=== PATIENT | female | born 1950 | race African-American/Black ===

== ENCOUNTER 2022-06-28 13:14 | Inpatient (IN) ==
[2022-06-28 16:33] LABS: Albumin 2.9 G/DL (3.4-5.0); Bilirubin,Total 0.7 MG/DL (0.20-1.00); Calcium 8.8 MG/DL (8.5-10.1); Osmolality,Calculated 292.4 MOS/KG (273-304); Potassium 3.9 MMOL/L (3.5-5.1); Total Protein 6.9 G/DL (6.4-8.2)
[2022-06-28 16:42] LABS: Basophils % 0.2 % (0.0-0.8); Eosinophils % 0.2 % (0.00-10.9); Hematocrit 36.1 VOL% (35.7-47.0); Hemoglobin 12.4 GM/DL (12.0-16.0); Immature Granulocytes % 0.8 %; Immature Granulocytes Absolute 0.04 #; Lymphocytes # 0.7 10*3/uL (1.4-4.0); Lymphocytes % 12.8 % (21.3-54.2); Mean Corpuscular HGB Conc 34.3 GM/DL (32-36); Mean Corpuscular Volume 76.2 FL (87-102); Mean Platelet Volume 10.3 FL (9.6-12.0); Monocytes # 0.5 10*3/uL (0.11-0.8); Monocytes % 9.7 % (1.7-12.7); Neutrophils % 76.3 % (38.7-73.9); Platelet Count 117 T/CUMM (130-400); Red Blood Count 4.74 MC/CUMM (3.8-5.5); Red Cell Distribution Width 17.8 % (9.3-17.3); White Blood Count 5.2 T/CUMM (4-12)
[2022-06-28] MEDS ORDERED: DEXTROSE 50% 25 GM/50 ML VIAL IV PRN (17:48)
[2022-06-28] MEDS ORDERED: ONDANSETRON 4 MG/2 ML VIAL IV PRN (17:48)
[2022-06-28] MEDS ORDERED: ACETAMINOPHEN 325 MG TABLET PO PRN (17:48)
[2022-06-28] MEDS ORDERED: GLUCAGON 1 MG VIAL IM PRN ×2 (17:48)
[2022-06-28] MEDS ORDERED: DOCUSATE SODIUM 100 MG CAPSULE PO PRN (17:54)
[2022-06-28] MEDS ORDERED: DEXTROSE 10% 250 ML BAG IV PRN (17:54)
[2022-06-28] MEDS ORDERED: INSULIN REGULAR 100 UNIT/ML ONE (18:19)
[2022-06-28] MEDS ORDERED: HEPARIN 5,000 UNIT/1 ML VIAL SUBCUT SCH (21:00)
[2022-06-28] MEDS ORDERED: ENOXAPARIN 60 MG/0.6 ML SYRINGE SUBCUT SCH (21:00)
[2022-06-28] MEDS ORDERED: POLYETHYLENE GLYCOL POWDER 255 GM BOTTLE PO ONE (21:00)
[2022-06-28] MEDS: INSULIN REGULAR 100 UNIT/ML SUBCUT SCH (21:30)
[2022-06-28] MEDS: carvediloL 25 MG TABLET PO SCH (21:30)
[2022-06-28] MEDS: ATORVASTATIN 10 MG TABLET PO SCH (21:30)
[2022-06-29 05:39] LABS: Basophils % 0.2 % (0.0-0.8); Eosinophils % 0.8 % (0.00-10.9); Hematocrit 35.2 VOL% (35.7-47.0); Hemoglobin 12.2 GM/DL (12.0-16.0); Immature Granulocytes % 0.6 %; Immature Granulocytes Absolute 0.03 #; Lymphocytes # 0.9 10*3/uL (1.4-4.0); Lymphocytes % 18.8 % (21.3-54.2); Mean Corpuscular HGB Conc 34.7 GM/DL (32-36); Mean Corpuscular Volume 75.1 FL (87-102); Mean Platelet Volume 9.9 FL (9.6-12.0); Monocytes # 0.7 10*3/uL (0.11-0.8); Monocytes % 14.3 % (1.7-12.7); Neutrophils % 65.3 % (38.7-73.9); Platelet Count 109 T/CUMM (130-400); Red Blood Count 4.69 MC/CUMM (3.8-5.5); Red Cell Distribution Width 17.9 % (9.3-17.3); White Blood Count 4.7 T/CUMM (4-12)
[2022-06-29 06:01] LABS: Hypochromia 1+
[2022-06-29 06:02] LABS: Acanthocytes Few; Microcytosis 1+; Ovalocytes Slight; Target Cells Few
[2022-06-29 06:03] LABS: Platelet Estimate Decreased
[2022-06-29 06:09] LABS: Alanine Aminotransferase < 9 U/L (13-56); Albumin 2.5 G/DL (3.4-5.0); Alkaline Phosphatase 61 U/L (45-117); Aspartate Amino Transferase 8 U/L (0-37); Blood Urea Nitrogen 49 MG/DL (7-18); Calcium 8.3 MG/DL (8.5-10.1); Carbon Dioxide 26 MMOL/L (21-32); Chloride 102 MMOL/L (98-107); Cholesterol 80 MG/DL (50-200); Glucose 139 MG/DL (74-106); HDL Cholesterol 29 MG/DL (40-60); Osmolality,Calculated 287.8 MOS/KG (273-304); Potassium 3.6 MMOL/L (3.5-5.1); Risk Ratio 2.76; Sodium 137 MMOL/L (136-145); Total Protein 6.3 G/DL (6.4-8.2); Triglycerides 59 MG/DL (2-150); VLDL Cholesterol 11.8 MG/DL
[2022-06-29] MEDS: ASPIRIN EC 81 MG TABLET PO SCH (08:12)
[2022-06-29] MEDS: carvediloL 25 MG TABLET PO SCH ×2 (08:12→20:53)
[2022-06-29] MEDS: ISOSORBIDE MONONITRATE 60 MG TABLET PO SCH (08:13)
[2022-06-29] MEDS: amLODIPine 10 MG TABLET PO SCH (08:13)
[2022-06-29] MEDS: INSULIN REGULAR 100 UNIT/ML SUBCUT SCH ×3 (08:13→17:57)
[2022-06-29] MEDS: PANTOPRAZOLE 40 MG TABLET PO SCH (08:13)
[2022-06-29] MEDS: FUROSEMIDE 40 MG/4 ML VIAL IV SCH ×2 (08:16→17:57)
[2022-06-29] MEDS: APIXABAN 2.5 MG TABLET PO SCH ×2 (08:50→20:53)
[2022-06-29] MEDS ORDERED: CLOPIDOGREL 75 MG TABLET PO SCH (09:00)
[2022-06-29 11:11] LABS: Hepatitis B Core IgM Quant 0.23 Index; Hepatitis B Surface Ag Quant < 0.10 Index; Hepatitis B Surface Ag Result Non-Reactive (NonReactive); Hepatitis C Virus Ab Quant 0.04 Index; Hepatitis C Virus Ab Result Non-Reactive (NonReactive)
[2022-06-29 13:15] LABS: Bacteria,Urine Many /HPF (Few); RBC,Urine 93 /HPF (0-4); Squamous Epithelial Cell,Urine Many /HPF (0-10)
[2022-06-29 13:16] LABS: Urine Appearance Cloudy (Clear); Urine Color Dark yellow (Yellow)
[2022-06-29 13:17] LABS: Bilirubin,Urine Small mg/dL (Negative); Blood, Urine Large mg/dL (Negative); Glucose,Urine (UA) Negative (Negative); Ketones,Urine 15 mg/dL (Negative); Nitrite,Urine Negative (Negative); Protein,Urine >=300 mg/dL (Negative); Urine Urobilinogen 0.2 eU/dL (<2.0); Urine pH 5.5 (4.5-8.0)
[2022-06-29] MEDS: ATORVASTATIN 10 MG TABLET PO SCH (20:53)
[2022-06-30] MEDS: INSULIN REGULAR 100 UNIT/ML SUBCUT SCH ×5 (00:45→21:56)
[2022-06-30] MEDS ORDERED: TUBERCULIN SKIN TEST 0.1 ML SYRINGE INTRADERM ONE (08:00)
[2022-06-30] MEDS: FUROSEMIDE 40 MG/4 ML VIAL IV SCH ×2 (08:35→15:50)
[2022-06-30] MEDS: PANTOPRAZOLE 40 MG TABLET PO SCH (08:36)
[2022-06-30] MEDS: carvediloL 25 MG TABLET PO SCH ×2 (08:36→21:57)
[2022-06-30] MEDS: ISOSORBIDE MONONITRATE 60 MG TABLET PO SCH (08:36)
[2022-06-30] MEDS: ASPIRIN EC 81 MG TABLET PO SCH (08:36)
[2022-06-30] MEDS: APIXABAN 2.5 MG TABLET PO SCH ×2 (08:36→21:54)
[2022-06-30] MEDS: amLODIPine 10 MG TABLET PO SCH ×2 (08:36→08:46)
[2022-06-30] MEDS: ATORVASTATIN 10 MG TABLET PO SCH (21:54)
[2022-07-01] MEDS ORDERED: POLYETHYLENE GLYCOL POWDER 17 GM PACK PO PRN (02:51)
[2022-07-01] MEDS ORDERED: ALUM/MAG/SIMETH/LIDO VISC 1:1 30 ML BOTTLE PO ONE (02:51)
[2022-07-01] MEDS: INSULIN REGULAR 100 UNIT/ML SUBCUT SCH ×4 (07:50→21:33)
[2022-07-01] MEDS: FUROSEMIDE 40 MG/4 ML VIAL IV SCH (09:20)
[2022-07-01] MEDS: amLODIPine 10 MG TABLET PO SCH (09:20)
[2022-07-01] MEDS: PANTOPRAZOLE 40 MG TABLET PO SCH (09:20)
[2022-07-01] MEDS: ISOSORBIDE MONONITRATE 60 MG TABLET PO SCH (09:20)
[2022-07-01] MEDS: APIXABAN 2.5 MG TABLET PO SCH ×2 (09:20→21:32)
[2022-07-01] MEDS: carvediloL 25 MG TABLET PO SCH ×2 (09:20→21:32)
[2022-07-01] MEDS: ASPIRIN EC 81 MG TABLET PO SCH (09:20)
[2022-07-01] MEDS: ATORVASTATIN 10 MG TABLET PO SCH (21:32)
[2022-07-01] MEDS ORDERED: ALUM/MAG/SIMETH/LIDO VISC 1:1 30 ML BOTTLE PO PRN (21:51)
[2022-07-02] MEDS: ISOSORBIDE MONONITRATE 60 MG TABLET PO SCH (13:48)
[2022-07-02] MEDS: PANTOPRAZOLE 40 MG TABLET PO SCH (13:48)
[2022-07-02] MEDS: amLODIPine 5 MG TABLET PO SCH (13:48)
[2022-07-02] MEDS: carvediloL 25 MG TABLET PO SCH ×2 (13:48→21:31)
[2022-07-02] MEDS: ASPIRIN EC 81 MG TABLET PO SCH (13:48)
[2022-07-02] MEDS: APIXABAN 2.5 MG TABLET PO SCH ×2 (13:48→21:31)
[2022-07-02] MEDS: INSULIN REGULAR 100 UNIT/ML SUBCUT SCH ×4 (13:49→20:36)
[2022-07-02] MEDS: ATORVASTATIN 10 MG TABLET PO SCH (21:31)
[2022-07-03] MEDS: INSULIN REGULAR 100 UNIT/ML SUBCUT SCH (08:13)
[2022-07-03] MEDS: ASPIRIN EC 81 MG TABLET PO SCH (08:40)
[2022-07-03] MEDS: APIXABAN 2.5 MG TABLET PO SCH (08:40)
[2022-07-03] MEDS: carvediloL 25 MG TABLET PO SCH (08:40)
[2022-07-03] MEDS: ISOSORBIDE MONONITRATE 60 MG TABLET PO SCH (08:40)
[2022-07-03] MEDS: amLODIPine 5 MG TABLET PO SCH (08:40)
[2022-07-03] MEDS: PANTOPRAZOLE 40 MG TABLET PO SCH (08:40)
[2022-07-03 09:06] VITALS: BP 100/61
[2022-07-05] MEDS ORDERED: cloNIDine 0.3 MG/24 HR PATCH TRANSDERM SCH (09:00)
== END 2022-07-03 11:30 | DRG 640 ==
LOC: N.ED 13:14 → N.EDINP 17:47 → N.TELES 22:30
PROVIDERS: ADMIT Internal Medicine Geriatric Medicine; ATTEND Internal Medicine Geriatric Medicine

== ENCOUNTER 2022-07-16 08:08 | Inpatient (IN) ==
[2022-07-16] MEDS ORDERED: SODIUM CHLORIDE 0.9% 500 ML IV STA (08:11)
[2022-07-16 09:42] LABS: Eosinophils % 0.3 % (0.00-10.9); Hematocrit 20.9 VOL% (35.7-47.0); Hemoglobin 6.6 GM/DL (12.0-16.0); Immature Granulocytes % 1.3 %; Immature Granulocytes Absolute 0.05 #; Lymphocytes # 0.5 10*3/uL (1.4-4.0); Lymphocytes % 12.5 % (21.3-54.2); Mean Corpuscular HGB Conc 31.6 GM/DL (32-36); Mean Corpuscular Volume 81.6 FL (87-102); Mean Platelet Volume 10.6 FL (9.6-12.0); Monocytes # 0.4 10*3/uL (0.11-0.8); Monocytes % 10.5 % (1.7-12.7); Neutrophils % 75.4 % (38.7-73.9); Red Blood Count 2.56 MC/CUMM (3.8-5.5); Red Cell Distribution Width 18.1 % (9.3-17.3); White Blood Count 3.9 T/CUMM (4-12)
[2022-07-16 09:44] LABS: Platelet Count 56 T/CUMM (130-400)
[2022-07-16 10:03] LABS: Platelet Estimate Decreased
[2022-07-16 10:14] LABS: Alanine Aminotransferase < 6 U/L (13-56); Albumin 0.6 G/DL (3.4-5.0); Alkaline Phosphatase 23 U/L (45-117); Aspartate Amino Transferase 5 U/L (0-37); Bilirubin,Total < 0.39 MG/DL (0.20-1.00); Blood Urea Nitrogen 27 MG/DL (7-18); Carbon Dioxide 11 MMOL/L (21-32); Chloride 135 MMOL/L (98-107); Osmolality,Calculated 308.3 MOS/KG (273-304); Sodium 155 MMOL/L (136-145)
[2022-07-16 10:18] LABS: Calcium < 5.0 MG/DL (8.5-10.1); Glucose 36 MG/DL (74-106); Potassium 1.8 MMOL/L (3.5-5.1)
[2022-07-16] MEDS ORDERED: DEXTROSE 50% 25 GM/50 ML VIAL IV STA (10:19)
[2022-07-16] MEDS ORDERED: DEXTROSE 50% 25 GM/50 ML SYRINGE IV ONE (10:21)
[2022-07-16] MEDS ORDERED: ALBUTEROL 2.5 MG/3 ML NEB RESP TX PRN (10:38)
[2022-07-16] MEDS ORDERED: POTASSIUM CHLORIDE RIDER 20 MEQ/100 ML PREMIX IV STA (10:39)
[2022-07-16] MEDS ORDERED: ONDANSETRON 4 MG/2 ML VIAL IV PRN (10:39)
[2022-07-16] MEDS ORDERED: CALCIUM GLUCONATE RIDER 1,000 MG/50 ML PREMIX IV ONE (10:39)
[2022-07-16] MEDS ORDERED: SODIUM CHLORIDE 0.9% 500 ML IV ONE (11:21)
[2022-07-16 12:02] LABS: Basophils % 0.2 % (0.0-0.8); Eosinophils % 0.2 % (0.00-10.9); Hematocrit 34.7 VOL% (35.7-47.0); Hemoglobin 11.4 GM/DL (12.0-16.0); Immature Granulocytes % 1.2 %; Immature Granulocytes Absolute 0.08 #; Lymphocytes # 0.7 10*3/uL (1.4-4.0); Lymphocytes % 10.6 % (21.3-54.2); Mean Corpuscular HGB Conc 32.9 GM/DL (32-36); Mean Corpuscular Volume 79.2 FL (87-102); Mean Platelet Volume 11.5 FL (9.6-12.0); Monocytes # 0.7 10*3/uL (0.11-0.8); Monocytes % 10.2 % (1.7-12.7); Neutrophils % 77.6 % (38.7-73.9); Platelet Count 100 T/CUMM (130-400); Red Blood Count 4.38 MC/CUMM (3.8-5.5); Red Cell Distribution Width 18.2 % (9.3-17.3); White Blood Count 6.6 T/CUMM (4-12)
[2022-07-16 12:09] LABS: Alanine Aminotransferase < 6 U/L (13-56); Alkaline Phosphatase 62 U/L (45-117); Aspartate Amino Transferase 11 U/L (0-37); Blood Urea Nitrogen 61 MG/DL (7-18); Calcium 8.3 MG/DL (8.5-10.1); Carbon Dioxide 27 MMOL/L (21-32); Chloride 108 MMOL/L (98-107); Glucose 164 MG/DL (74-106); Osmolality,Calculated 303.1 MOS/KG (273-304); Potassium 4.4 MMOL/L (3.5-5.1); Sodium 142 MMOL/L (136-145); Total Protein 5.5 G/DL (6.4-8.2)
[2022-07-16] MEDS ORDERED: ALBUMIN 25% 25 GM/100 ML VIAL IV ONE ×2 (12:44→12:47)
[2022-07-16] MEDS: FAMOTIDINE 20 MG/2 ML VIAL IV SCH (12:57)
[2022-07-16] MEDS: SODIUM CHLORIDE 0.9% 500 ML IV SCH ×2 (15:55→17:22)
[2022-07-16] MEDS: ALBUMIN 25% 25 GM/100 ML VIAL IV SCH (20:46)
[2022-07-16] MEDS: ATORVASTATIN 40 MG TABLET PO SCH (21:03)
[2022-07-16] MEDS: DESITIN 4OZ/NYSTATIN 15 GRAM MIXTURE PASTE TOP SCH (21:25)
[2022-07-16] MEDS: NOREPINEPHRINE 8 MG in SODIUM CHLORIDE 0.9% 242 ML IV PRN (21:25)
[2022-07-17] MEDS: ALBUMIN 25% 25 GM/100 ML VIAL IV SCH ×2 (04:17→13:40)
[2022-07-17 06:58] LABS: Eosinophils % 0.1 % (0.00-10.9); Hematocrit 37.4 VOL% (35.7-47.0); Hemoglobin 12.3 GM/DL (12.0-16.0); Immature Granulocytes Absolute 0.08 #; Lymphocytes # 0.7 10*3/uL (1.4-4.0); Lymphocytes % 9.2 % (21.3-54.2); Mean Corpuscular HGB Conc 32.9 GM/DL (32-36); Mean Corpuscular Volume 78.4 FL (87-102); Monocytes # 0.6 10*3/uL (0.11-0.8); Monocytes % 7.7 % (1.7-12.7); Platelet Count 118 T/CUMM (130-400); Red Blood Count 4.77 MC/CUMM (3.8-5.5); Red Cell Distribution Width 18.6 % (9.3-17.3)
[2022-07-17 07:33] LABS: Albumin 2.9 G/DL (3.4-5.0); Bilirubin,Total 0.8 MG/DL (0.20-1.00); Calcium 8.1 MG/DL (8.5-10.1); Osmolality,Calculated 303.3 MOS/KG (273-304); Potassium 4.7 MMOL/L (3.5-5.1); Risk Ratio 5.07; Thyroid Stimulating Hormone 2.63 uIU/ml (0.358-3.74); Total Protein 6.1 G/DL (6.4-8.2); VLDL Cholesterol 21.4 MG/DL
[2022-07-17] MEDS: PANTOPRAZOLE 40 MG VIAL IV SCH (08:16)
[2022-07-17] MEDS: DESITIN 4OZ/NYSTATIN 15 GRAM MIXTURE PASTE TOP SCH ×2 (08:16→21:36)
[2022-07-17] MEDS: FAMOTIDINE 20 MG/2 ML VIAL IV SCH (13:40)
[2022-07-17] MEDS: ATORVASTATIN 40 MG TABLET PO SCH (21:36)
[2022-07-18] MEDS ORDERED: SODIUM CHLORIDE 0.9% 500 ML IV ONE (00:45)
[2022-07-18] MEDS: NOREPINEPHRINE 8 MG in SODIUM CHLORIDE 0.9% 242 ML IV PRN (00:58)
[2022-07-18] MEDS ORDERED: DIGOXIN 0.5 MG/2 ML AMP IV ONE ×3 (04:18→06:08)
[2022-07-18 04:46] LABS: Eosinophils % 0.3 % (0.00-10.9); Hematocrit 39.8 VOL% (35.7-47.0); Hemoglobin 13.1 GM/DL (12.0-16.0); Immature Granulocytes % 0.8 %; Immature Granulocytes Absolute 0.07 #; Lymphocytes # 0.8 10*3/uL (1.4-4.0); Lymphocytes % 9.3 % (21.3-54.2); Mean Corpuscular HGB Conc 32.9 GM/DL (32-36); Mean Corpuscular Volume 78.8 FL (87-102); Mean Platelet Volume 10.8 FL (9.6-12.0); Monocytes # 0.9 10*3/uL (0.11-0.8); Monocytes % 10.2 % (1.7-12.7); Neutrophils % 79.4 % (38.7-73.9); Platelet Count 135 T/CUMM (130-400); Red Blood Count 5.05 MC/CUMM (3.8-5.5); White Blood Count 8.6 T/CUMM (4-12)
[2022-07-18] MEDS: DESITIN 4OZ/NYSTATIN 15 GRAM MIXTURE PASTE TOP SCH ×3 (05:07→20:30)
[2022-07-18 05:39] LABS: Alanine Aminotransferase < 9 U/L (13-56); Albumin 3.1 G/DL (3.4-5.0); Alkaline Phosphatase 69 U/L (45-117); Aspartate Amino Transferase 9 U/L (0-37); Blood Urea Nitrogen 82 MG/DL (7-18); Carbon Dioxide 24 MMOL/L (21-32); Chloride 109 MMOL/L (98-107); Glucose 146 MG/DL (74-106); Osmolality,Calculated 310.1 MOS/KG (273-304); Potassium 4.6 MMOL/L (3.5-5.1); Sodium 142 MMOL/L (136-145); Total Protein 6.3 G/DL (6.4-8.2)
[2022-07-18] MEDS: PANTOPRAZOLE 40 MG VIAL IV SCH (09:36)
[2022-07-18] MEDS: FAMOTIDINE 20 MG/2 ML VIAL IV SCH (10:45)
[2022-07-18] MEDS: ATORVASTATIN 40 MG TABLET PO SCH (20:30)
[2022-07-19 04:54] LABS: Eosinophils % 0.7 % (0.00-10.9); Hematocrit 36.1 VOL% (35.7-47.0); Hemoglobin 11.9 GM/DL (12.0-16.0); Immature Granulocytes % 0.5 %; Immature Granulocytes Absolute 0.03 #; Lymphocytes # 0.8 10*3/uL (1.4-4.0); Lymphocytes % 13.9 % (21.3-54.2); Mean Corpuscular Volume 78.1 FL (87-102); Mean Platelet Volume 9.7 FL (9.6-12.0); Monocytes # 0.7 10*3/uL (0.11-0.8); Monocytes % 11.5 % (1.7-12.7); Neutrophils % 73.4 % (38.7-73.9); Red Blood Count 4.62 MC/CUMM (3.8-5.5); Red Cell Distribution Width 18.3 % (9.3-17.3); White Blood Count 5.8 T/CUMM (4-12)
[2022-07-19 04:55] LABS: Platelet Count 68 T/CUMM (130-400)
[2022-07-19 05:08] LABS: Calcium 7.7 MG/DL (8.5-10.1); Potassium 4.4 MMOL/L (3.5-5.1)
[2022-07-19] MEDS: PANTOPRAZOLE 40 MG VIAL IV SCH (09:46)
[2022-07-19] MEDS: DESITIN 4OZ/NYSTATIN 15 GRAM MIXTURE PASTE TOP SCH ×2 (09:47→20:23)
[2022-07-19] MEDS: FAMOTIDINE 20 MG/2 ML VIAL IV SCH (10:00)
[2022-07-19] MEDS: APIXABAN 2.5 MG TABLET PO SCH (20:22)
[2022-07-19] MEDS: PANTOPRAZOLE 40 MG TABLET PO SCH (20:23)
[2022-07-20 05:32] LABS: Basophils % 0.2 % (0.0-0.8); Eosinophils % 0.5 % (0.00-10.9); Hematocrit 38.7 VOL% (35.7-47.0); Hemoglobin 12.5 GM/DL (12.0-16.0); Immature Granulocytes % 0.3 %; Immature Granulocytes Absolute 0.02 #; Lymphocytes # 0.8 10*3/uL (1.4-4.0); Lymphocytes % 12.6 % (21.3-54.2); Mean Corpuscular HGB Conc 32.3 GM/DL (32-36); Mean Corpuscular Volume 79.5 FL (87-102); Mean Platelet Volume 10.7 FL (9.6-12.0); Monocytes # 0.6 10*3/uL (0.11-0.8); Monocytes % 10.8 % (1.7-12.7); Neutrophils % 75.6 % (38.7-73.9); Red Blood Count 4.87 MC/CUMM (3.8-5.5); Red Cell Distribution Width 18.6 % (9.3-17.3); White Blood Count 5.9 T/CUMM (4-12)
[2022-07-20 05:36] LABS: Platelet Count 58 T/CUMM (130-400)
[2022-07-20 05:54] LABS: Platelet Estimate Decreased
[2022-07-20 05:56] LABS: Calcium 8.2 MG/DL (8.5-10.1); Osmolality,Calculated 304.1 MOS/KG (273-304); Potassium 4.8 MMOL/L (3.5-5.1)
[2022-07-20] MEDS ORDERED: PANTOPRAZOLE 40 MG TABLET PO SCH (09:00)
[2022-07-20] MEDS: SERTRALINE 25 MG TABLET PO SCH (09:56)
[2022-07-20] MEDS: DESITIN 4OZ/NYSTATIN 15 GRAM MIXTURE PASTE TOP SCH ×2 (09:56→20:19)
[2022-07-20] MEDS: ATORVASTATIN 10 MG TABLET PO SCH (09:57)
[2022-07-20] MEDS: ASPIRIN EC 81 MG TABLET PO SCH (09:57)
[2022-07-20] MEDS: PANTOPRAZOLE 40 MG TABLET PO SCH ×2 (09:57→20:19)
[2022-07-20] MEDS: APIXABAN 2.5 MG TABLET PO SCH ×2 (09:57→20:19)
[2022-07-21 05:21] LABS: Eosinophils # 0.1 10*3/uL (0.0-0.87); Eosinophils % 0.8 % (0.00-10.9); Hematocrit 38.4 VOL% (35.7-47.0); Hemoglobin 12.3 GM/DL (12.0-16.0); Immature Granulocytes % 0.7 %; Immature Granulocytes Absolute 0.04 #; Lymphocytes # 0.9 10*3/uL (1.4-4.0); Lymphocytes % 14.6 % (21.3-54.2); Mean Corpuscular Volume 79.3 FL (87-102); Monocytes # 0.8 10*3/uL (0.11-0.8); Monocytes % 13.9 % (1.7-12.7); Platelet Count 62 T/CUMM (130-400); Red Blood Count 4.84 MC/CUMM (3.8-5.5); Red Cell Distribution Width 18.5 % (9.3-17.3); White Blood Count 5.9 T/CUMM (4-12)
[2022-07-21 05:36] LABS: Calcium 8.3 MG/DL (8.5-10.1); Osmolality,Calculated 302.3 MOS/KG (273-304); Potassium 4.9 MMOL/L (3.5-5.1)
[2022-07-21 05:46] LABS: Platelet Estimate Decreased
[2022-07-21] MEDS: ASPIRIN EC 81 MG TABLET PO SCH (09:38)
[2022-07-21] MEDS: DESITIN 4OZ/NYSTATIN 15 GRAM MIXTURE PASTE TOP SCH ×2 (09:38→20:56)
[2022-07-21] MEDS: APIXABAN 2.5 MG TABLET PO SCH ×2 (09:38→20:56)
[2022-07-21] MEDS: SERTRALINE 25 MG TABLET PO SCH (09:38)
[2022-07-21] MEDS: PANTOPRAZOLE 40 MG TABLET PO SCH ×2 (09:39→20:56)
[2022-07-21] MEDS: ATORVASTATIN 10 MG TABLET PO SCH (09:40)
[2022-07-21] MEDS: CYPROHEPTADINE 4 MG TABLET PO SCH ×2 (15:19→20:55)
[2022-07-21] MEDS: ZINC OXIDE PASTE 113 GM TUBE TOP PRN (20:55)
[2022-07-22 03:56] LABS: Basophils % 0.2 % (0.0-0.8); Eosinophils % 0.3 % (0.00-10.9); Hemoglobin 12.5 GM/DL (12.0-16.0); Immature Granulocytes % 0.8 %; Immature Granulocytes Absolute 0.05 #; Lymphocytes % 16.9 % (21.3-54.2); Mean Corpuscular HGB Conc 32.9 GM/DL (32-36); Mean Corpuscular Volume 77.7 FL (87-102); Monocytes # 0.8 10*3/uL (0.11-0.8); Monocytes % 13.3 % (1.7-12.7); Neutrophils % 68.5 % (38.7-73.9); Platelet Count 55 T/CUMM (130-400); Red Blood Count 4.89 MC/CUMM (3.8-5.5); Red Cell Distribution Width 18.5 % (9.3-17.3); White Blood Count 6.1 T/CUMM (4-12)
[2022-07-22 04:12] LABS: Calcium 8.5 MG/DL (8.5-10.1); Osmolality,Calculated 295.4 MOS/KG (273-304); Potassium 4.8 MMOL/L (3.5-5.1)
[2022-07-22 04:13] LABS: Platelet Estimate Decreased
[2022-07-22] MEDS: ASPIRIN EC 81 MG TABLET PO SCH (10:19)
[2022-07-22] MEDS: ATORVASTATIN 10 MG TABLET PO SCH (10:20)
[2022-07-22] MEDS: SERTRALINE 25 MG TABLET PO SCH (10:20)
[2022-07-22] MEDS: DESITIN 4OZ/NYSTATIN 15 GRAM MIXTURE PASTE TOP SCH ×2 (10:20→21:05)
[2022-07-22] MEDS: PANTOPRAZOLE 40 MG TABLET PO SCH ×2 (10:20→21:04)
[2022-07-22] MEDS: CYPROHEPTADINE 4 MG TABLET PO SCH ×3 (10:20→21:04)
[2022-07-22] MEDS: APIXABAN 2.5 MG TABLET PO SCH (10:51)
[2022-07-23 05:48] LABS: Basophils % 0.2 % (0.0-0.8); Eosinophils # 0.1 10*3/uL (0.0-0.87); Eosinophils % 1.1 % (0.00-10.9); Hematocrit 38.8 VOL% (35.7-47.0); Hemoglobin 12.7 GM/DL (12.0-16.0); Immature Granulocytes % 0.7 %; Immature Granulocytes Absolute 0.04 #; Lymphocytes % 17.3 % (21.3-54.2); Mean Corpuscular HGB Conc 32.7 GM/DL (32-36); Mean Corpuscular Volume 78.9 FL (87-102); Monocytes # 0.7 10*3/uL (0.11-0.8); Monocytes % 12.4 % (1.7-12.7); Neutrophils % 68.3 % (38.7-73.9); Platelet Count 60 T/CUMM (130-400); Red Blood Count 4.92 MC/CUMM (3.8-5.5); Red Cell Distribution Width 18.1 % (9.3-17.3); White Blood Count 5.5 T/CUMM (4-12)
[2022-07-23 06:06] LABS: Albumin 2.2 G/DL (3.4-5.0); Bilirubin,Total 0.7 MG/DL (0.20-1.00); Calcium 7.9 MG/DL (8.5-10.1); Osmolality,Calculated 307.8 MOS/KG (273-304); Potassium 4.9 MMOL/L (3.5-5.1); Total Protein 5.9 G/DL (6.4-8.2)
[2022-07-23 06:15] LABS: Acanthocytes Few; Target Cells Slight
[2022-07-23 06:16] LABS: Hypochromia 1+; Microcytosis 1+; Ovalocytes Slight; Platelet Estimate Decreased
[2022-07-23] MEDS: ZINC OXIDE PASTE 113 GM TUBE TOP PRN (17:17)
[2022-07-23] MEDS: ATORVASTATIN 10 MG TABLET PO SCH (18:37)
[2022-07-23] MEDS: ASPIRIN EC 81 MG TABLET PO SCH (18:37)
[2022-07-23] MEDS: SERTRALINE 25 MG TABLET PO SCH (18:41)
[2022-07-23] MEDS: PANTOPRAZOLE 40 MG TABLET PO SCH ×2 (18:41→20:44)
[2022-07-23] MEDS: CYPROHEPTADINE 4 MG TABLET PO SCH ×3 (18:41→20:44)
[2022-07-23] MEDS: DESITIN 4OZ/NYSTATIN 15 GRAM MIXTURE PASTE TOP SCH ×2 (18:41→20:44)
[2022-07-23] MEDS: APIXABAN 2.5 MG TABLET PO SCH (20:45)
[2022-07-24] MEDS: ZINC OXIDE PASTE 113 GM TUBE TOP PRN (11:18)
[2022-07-24 11:48] VITALS: BP 112/54
== END 2022-07-24 13:15 | disposition hospice, inpatient (51) | DRG 314 ==
LOC: EDUNIT# → EDBD → N.ED 08:08 → SUATTDRO 10:38 → N.EDINP 10:38 → N.ICU 13:26 → N.3E 07-19 16:33
PROVIDERS: ADMIT Internal Medicine; ATTEND Emergency Medicine